=== PATIENT | male | born 1955 | race Caucasian/White ===

== ENCOUNTER 2023-04-05 13:35 | Outpatient (RCR) | payer OTHER ==
[~2023-04-05 13:35] MED LIST: AMARYL4 MG PO; CARDIZEM CD 12120 MG PO; EPA FISH OIL1 SGL PO; FLEXERIL 1010 MG/TAB PO; FLUOROURACIL5% TP; GLUCOPHAGE1000 MG PO; MOBIC15 MG PO; MOTRIN 200200 MG/TAB PO; NORCO 325 MG-51 TAB PO; PRINIVIL10 MG PO; PRINIVIL20 MG PO; PROSCAR 5MG5 MG PO; TRADJENTA5 MG PO; TYLENOL 500MG500 MG PO; ZOCOR 10MG10 MG PO
== END 2023-04-10 ==
LOC: WSOH
DX: S00.83XD Contusion of other part of head, subsequent encounter (principal); S02.64 Fracture of ramus of mandible; E11.9 Type 2 diabetes mellitus without complications; I10 Essential (primary) hypertension; E78.5 Hyperlipidemia, unspecified; N40.0 Benign prostatic hyperplasia without lower urinary tract symptoms; Y99.0 Civilian activity done for income or pay

== ENCOUNTER 2023-04-23 11:02 | Outpatient (RCR) | payer OTHER | END 2023-05-09 | disposition home or self-care (01) | LOC: WSOH | DX: S00.83XD Contusion of other part of head, subsequent encounter (principal); S02.64 Fracture of ramus of mandible; Y99.0 Civilian activity done for income or pay; E11.9 Type 2 diabetes mellitus without complications; I10 Essential (primary) hypertension; N40.0 Benign prostatic hyperplasia without lower urinary tract symptoms; X58.XXXD Exposure to other specified factors, subsequent encounter ==

== ENCOUNTER → 2024-01-07 | Outpatient (CLI) | payer BC | LOC: MHCPAIN 08:16 | DX: M54.2 Cervicalgia (principal); M48.02 Spinal stenosis, cervical region; I10 Essential (primary) hypertension; E11.9 Type 2 diabetes mellitus without complications; Z79.84 Long term (current) use of oral hypoglycemic drugs; N40.0 Benign prostatic hyperplasia without lower urinary tract symptoms; E78.5 Hyperlipidemia, unspecified | CPT/HCPCS: G0463 ==

== ENCOUNTER → 2024-02-12 | Outpatient (CLI) | payer BC | LOC: MHCPAIN 08:58 | DX: M54.12 Radiculopathy, cervical region (principal); M47.812 Spondylosis without myelopathy or radiculopathy, cervical region | CPT/HCPCS: G0463 ==